=== PATIENT | female | born 1975 | race Caucasian/White ===

== ENCOUNTER 2018-11-13 17:14 | Inpatient (IN) | payer OTHER ==
[~2018-11-13] VITALS: Ht 170.2 cm; Wt 79.1 kg
[2018-11-13 18:25] LABS: ALANINE AMINOTRANSFERASE 64 U/L (12-78); ALBUMIN 3.3 g/dL (3.4-5.0); ALKALINE PHOSPHATASE 81 U/L (46-116); ANION GAP 11 mmol/L (8-16); ASPARTATE AMINOTRANSFERASE 58 U/L (15-37); BILIRUBIN,TOTAL 0.8 mg/dL (0.1-1.0); CALCIUM, TOTAL 9.1 mg/dL (8.8-10.5); CARBON DIOXIDE 25 mmol/L (22-29); CHLORIDE 99 mmol/L (98-107); CREATININE 1.04 mg/dL (0.60-1.30); GLOMERULAR FILTR. RATE CALC 57 mL/min (>60); GLUCOSE,RANDOM 100 mg/dL (70-110); HCG,QUANTITATIVE < 1 mIU/mL (0-6); SODIUM SERUM 135 mmol/L (136-145); TOTAL PROTEIN, SERUM 8.3 g/dL (6.4-8.2); UREA NITROGEN, BLOOD 16 mg/dL (7-18)
[2018-11-13 18:29] LABS: POTASSIUM 2.8 mmol/L (3.5-5.1)
[2018-11-13] MEDS: ONDANSETRON HCL 4 MG/2 ML VIAL IVP ONE ×2 (18:36→19:50)
[2018-11-13] MEDS: SODIUM CHLORIDE 0.9% 1,000 ML IV ONE ×2 (18:37→19:30)
[2018-11-13] MEDS ORDERED: POTASSIUM CHLORIDE 20 MEQ ER TABLET PO ONE (19:00)
[2018-11-13] MEDS ORDERED: VANCOMYCIN HCL 1 GM/D5% WATER 200 ML IV ONE (19:45)
[2018-11-13 19:56] LABS: BASOPHILS % (AUTO) 0.2 % (0.0-2.0); EOSINOPHILS % (AUTO) 0 % (1.0-6.0); HEMATOCRIT 35.9 % (36-46); HEMOGLOBIN 11.5 g/dL (12.0-16.0); LYMPHOCYTES # (AUTO) 1.4 K/uL (1.0-4.8); LYMPHOCYTES % (AUTO) 3.4 % (22.0-44.0); MEAN CORPUSCULAR HEMOGLOBIN 27.3 pg (26.0-34.0); MEAN CORPUSCULAR HGB CONC 32.1 G/dL (31.0-37.0); MEAN CORPUSCULAR VOLUME 85 fL (80-100); MONOCYTES # (AUTO) 1.5 K/uL (0.1-1.0); MONOCYTES % (AUTO) 3.7 % (2.0-9.0); NEUTROPHILS # (AUTO) 37.2 K/uL (1.8-7.7); PLATELET COUNT (AUTO) 244 K/uL (150-450); RED BLOOD CELL COUNT(AUTO) 4.22 MIL/uL (4.00-5.20); RED CELL DISTRIBUTION WIDTH 14.7 % (11.5-14.5)
[2018-11-13] MEDS: POTASSIUM CHL 10 MEQ/WATER 50 ML IV SCH ×2 (20:03→23:57)
[2018-11-13 20:08] LABS: NEUTROPHILS % (AUTO) 92.7 % (40.0-70.0)
[2018-11-13] MEDS ORDERED: MAG HYDROX/AL HYDROX/SIMETH ES 30 ML SUSPENSION UDCUP PO PRN (21:00)
[2018-11-13] MEDS ORDERED: PETROLATUM,WHITE 28 GM JELLY TP PRN (21:00)
[2018-11-13] MEDS ORDERED: DOCUSATE SODIUM 100 MG CAPSULE PO PRN (21:00)
[2018-11-13] MEDS ORDERED: MAGNESIUM SULFATE 2 GM, MVI, ADULT NO.1 WITH VIT K 10 ML, THIAMINE HCL 100 MG, FOLIC AC... IV ONE ×5 (21:00)
[2018-11-13] MEDS ORDERED: GuaiFENesin/D-METHORPHAN [SUGAR-FREE] 200-20MG/10 ML SYRUP UDCUP PO PRN (21:00)
[2018-11-13] MEDS ORDERED: MAGNESIUM HYDROXIDE SUSPENSION 30 ML UDCUP PO PRN (21:00)
[2018-11-13] MEDS ORDERED: ONDANSETRON HCL 4 MG TABLET PO PRN (21:00)
[2018-11-13] MEDS ORDERED: ALBUTEROL SULFATE HFA 90 MCG/PUFF 8 GM INHALER IH PRN (21:00)
[2018-11-13] MEDS ORDERED: LORazepam 2 MG/ML VIAL IVP PRN (21:00)
[2018-11-13] MEDS ORDERED: NICOTINE 14 MG/24 HOUR PATCH TD PRN (21:00)
[2018-11-13] MEDS: METOCLOPRAMIDE HCL 5 MG/ML 2 ML VIAL IVP PRN (21:29)
[2018-11-13] MEDS: TEMAZEPAM 15 MG CAPSULE PO SCH (21:52)
[2018-11-13] MEDS: LOPERAMIDE HCL 2 MG CAPSULE PO PRN (21:52)
[2018-11-13] MEDS ORDERED: ONDANSETRON HCL 4 MG/2 ML VIAL IM PRN (22:45)
[2018-11-13] MEDS: ONDANSETRON HCL 4 MG/2 ML VIAL IVP PRN (22:58)
[2018-11-13 23:01] VITALS: BP 118/53
[2018-11-13] MEDS ORDERED: LORazepam 2 MG/ML VIAL IVP ONE (23:45)
[2018-11-14] MEDS: POTASSIUM CHL 10 MEQ/WATER 50 ML IV SCH (01:50)
[2018-11-14] MEDS: LORazepam 2 MG/ML VIAL IVP PRN ×3 (02:26→14:02)
[2018-11-14 04:40] VITALS: BP 115/72
[2018-11-14 07:24] LABS: BASOPHILS % (AUTO) 0.1 % (0.0-2.0); EOSINOPHILS % (AUTO) 0 % (1.0-6.0); HEMATOCRIT 34.9 % (36-46); HEMOGLOBIN 11.4 g/dL (12.0-16.0); LYMPHOCYTES # (AUTO) 1.3 K/uL (1.0-4.8); LYMPHOCYTES % (AUTO) 4.7 % (22.0-44.0); MEAN CORPUSCULAR HEMOGLOBIN 28.2 pg (26.0-34.0); MEAN CORPUSCULAR HGB CONC 32.8 G/dL (31.0-37.0); MEAN CORPUSCULAR VOLUME 86 fL (80-100); MONOCYTES % (AUTO) 3.8 % (2.0-9.0); NEUTROPHILS # (AUTO) 24.9 K/uL (1.8-7.7); NEUTROPHILS % (AUTO) 91.4 % (40.0-70.0); PLATELET COUNT (AUTO) 205 K/uL (150-450); RED BLOOD CELL COUNT(AUTO) 4.05 MIL/uL (4.00-5.20); RED CELL DISTRIBUTION WIDTH 15.2 % (11.5-14.5)
[2018-11-14 07:34] LABS: ALBUMIN 3.3 g/dL (3.4-5.0); BILIRUBIN,TOTAL 0.6 mg/dL (0.1-1.0); CALCIUM, TOTAL 8.8 mg/dL (8.8-10.5); CREATININE 1.03 mg/dL (0.60-1.30); MAGNESIUM 1.8 mg/dL (1.80-2.40); POTASSIUM 3.3 mmol/L (3.5-5.1)
[2018-11-14 07:35] VITALS: BP 127/83
[2018-11-14] MEDS: DICYCLOMINE HCL 10 MG CAPSULE PO PRN ×2 (08:03→14:02)
[2018-11-14] MEDS: IBUPROFEN 400 MG TABLET PO PRN ×2 (08:03→22:25)
[2018-11-14] MEDS: CloNIDine HCL 0.1 MG TABLET PO PRN ×2 (08:03→14:02)
[2018-11-14] MEDS: ONDANSETRON HCL 4 MG/2 ML VIAL IVP PRN (08:04)
[2018-11-14] MEDS ORDERED: VANCOMYCIN HCL 1.5 GM in DEXTROSE 5%-WATER 250 ML IV ONE (09:00)
[2018-11-14] MEDS ORDERED: MAGNESIUM SULFATE 4 GM/WATER 100 ML IV PRN (09:00)
[2018-11-14] MEDS ORDERED: MAGNESIUM OXIDE 400 MG TABLET PO PRN (09:00)
[2018-11-14] MEDS ORDERED: POTASSIUM CHL 10 MEQ/WATER 50 ML IV PRN (09:00)
[2018-11-14] MEDS ORDERED: MAGNESIUM SULFATE 2 GM/WATER 50 ML IV PRN (09:00)
[2018-11-14] MEDS ORDERED: SODIUM CHLORIDE 0.9% 1,000 ML IV ONE (09:45)
[2018-11-14] MEDS: POTASSIUM CHLORIDE 20 MEQ ER TABLET PO PRN (14:02)
[2018-11-14 15:29] VITALS: BP 138/58
[2018-11-14 16:59] LABS: APPEARANCE,URINE TURBID (CLEAR); GLUCOSE, URINE (UA) NEGATIVE (NEGATIVE); KETONES,URINE 15 mg/dL (NEGATIVE); LEUKOCYTE ESTERASE ,URINE MODERATE (NEGATIVE); NITRATE,URINE NEGATIVE (NEGATIVE); OCCULT BLOOD,URINE LARGE (NEGATIVE); PH,URINE 5.5 (5.0-8.0); PROTEIN,URINE SEE CONFIRM (NEGATIVE)
[2018-11-14 17:00] LABS: AMPHET/METH SCREEN,URINE POSITIVE (NEGATIVE); BARBITURATE SCREEN, URINE NEGATIVE (NEGATIVE); BENZODIAZEPINES SCREEN,URINE NEGATIVE (NEGATIVE); CANNABINOID SCREEN,URINE NEGATIVE (NEGATIVE); COCAINE SCREEN,URINE NEGATIVE (NEGATIVE); METHADONE SCREEN, URINE NEGATIVE (NEGATIVE); OPIATE SCREEN,URINE POSITIVE (NEGATIVE)
[2018-11-14 17:01] LABS: PHENCYCLIDINE SCREEN,URINE NEGATIVE (NEGATIVE)
[2018-11-14 17:03] LABS: BILIRUBIN,URINE PRELIM. POSITIVE (NEGATIVE)
[2018-11-14] MEDS: VANCOMYCIN HCL 1.25 GM in DEXTROSE 5%-WATER 250 ML IV SCH (18:05)
[2018-11-14 18:31] LABS: BACTERIA,URINE Few /HPF (None Seen); SQUAMOUS EPITHELIAL CELL,UR Moderate /LPF (None Seen); SULFOSALICYLIC ACID,URINE 3+ (Negative)
[2018-11-14 18:32] LABS: AMORPHOUS SEDIMENT,UR Moderate /LPF (None Seen); RBC,URINE 26-50 /HPF (0-2)
[2018-11-14 19:36] VITALS: BP 138/74
[2018-11-14] MEDS: TEMAZEPAM 15 MG CAPSULE PO SCH (20:42)
[2018-11-14] MEDS: ACETAMINOPHEN 325 MG TABLET PO PRN (20:51)
[2018-11-14 23:49] VITALS: BP 140/82
[2018-11-15] MEDS: DICYCLOMINE HCL 10 MG CAPSULE PO PRN ×4 (01:43→21:37)
[2018-11-15] MEDS: LORazepam 2 MG/ML VIAL IVP PRN ×3 (01:43→18:17)
[2018-11-15 05:08] VITALS: BP 117/73
[2018-11-15] MEDS: IBUPROFEN 400 MG TABLET PO PRN ×3 (06:25→21:22)
[2018-11-15] MEDS: VANCOMYCIN HCL 1.25 GM in DEXTROSE 5%-WATER 250 ML IV SCH ×4 (06:54→22:00)
[2018-11-15 07:42] LABS: BASOPHILS % (AUTO) 0.2 % (0.0-2.0); EOSINOPHILS % (AUTO) 0.5 % (1.0-6.0); HEMOGLOBIN 11.8 g/dL (12.0-16.0); LYMPHOCYTES # (AUTO) 1.7 K/uL (1.0-4.8); LYMPHOCYTES % (AUTO) 7.5 % (22.0-44.0); MEAN CORPUSCULAR HEMOGLOBIN 28.2 pg (26.0-34.0); MEAN CORPUSCULAR HGB CONC 31.9 G/dL (31.0-37.0); MEAN CORPUSCULAR VOLUME 88 fL (80-100); MONOCYTES # (AUTO) 1.1 K/uL (0.1-1.0); MONOCYTES % (AUTO) 4.8 % (2.0-9.0); NEUTROPHILS # (AUTO) 19.4 K/uL (1.8-7.7); PLATELET COUNT (AUTO) 164 K/uL (150-450); RED BLOOD CELL COUNT(AUTO) 4.18 MIL/uL (4.00-5.20); RED CELL DISTRIBUTION WIDTH 15.3 % (11.5-14.5)
[2018-11-15 11:28] LABS: ANION GAP 8 mmol/L (8-16); CALCIUM, TOTAL 8.5 mg/dL (8.8-10.5); CARBON DIOXIDE 23 mmol/L (22-29); CHLORIDE 106 mmol/L (98-107); CREATININE 0.96 mg/dL (0.60-1.30); GLOMERULAR FILTR. RATE CALC > 60 mL/min (>60); GLUCOSE,RANDOM 105 mg/dL (70-110); POTASSIUM 3.4 mmol/L (3.5-5.1); SODIUM SERUM 137 mmol/L (136-145); UREA NITROGEN, BLOOD 14 mg/dL (7-18)
[2018-11-15 13:21] VITALS: BP 120/82
[2018-11-15] MEDS: METOCLOPRAMIDE HCL 5 MG/ML 2 ML VIAL IVP PRN (15:30)
[2018-11-15 17:03] VITALS: BP 155/82
[2018-11-15 20:05] VITALS: BP 137/82
[2018-11-15] MEDS: TEMAZEPAM 15 MG CAPSULE PO SCH (20:06)
[2018-11-15 23:40] VITALS: BP 146/86
[2018-11-16] MEDS: LORazepam 2 MG/ML VIAL IVP PRN ×3 (00:17→23:21)
[2018-11-16] MEDS: DICYCLOMINE HCL 10 MG CAPSULE PO PRN (05:02)
[2018-11-16] MEDS: IBUPROFEN 400 MG TABLET PO PRN ×2 (05:03→12:13)
[2018-11-16 05:12] VITALS: BP 165/90
[2018-11-16] MEDS: VANCOMYCIN HCL 1.25 GM in DEXTROSE 5%-WATER 250 ML IV SCH ×2 (06:01→19:53)
[2018-11-16 08:17] VITALS: BP 134/86
[2018-11-16 12:09] VITALS: BP 123/66
[2018-11-16 16:06] VITALS: BP 115/72
[2018-11-16] MEDS: TEMAZEPAM 15 MG CAPSULE PO SCH (19:53)
[2018-11-16 20:11] LABS: BASOPHILS % (AUTO) 0.6 % (0.0-2.0); EOSINOPHILS % (AUTO) 2.7 % (1.0-6.0); HEMATOCRIT 36.8 % (36-46); HEMOGLOBIN 12.2 g/dL (12.0-16.0); LYMPHOCYTES # (AUTO) 1.9 K/uL (1.0-4.8); LYMPHOCYTES % (AUTO) 15.5 % (22.0-44.0); MEAN CORPUSCULAR HEMOGLOBIN 28.1 pg (26.0-34.0); MEAN CORPUSCULAR VOLUME 85 fL (80-100); MONOCYTES # (AUTO) 1.1 K/uL (0.1-1.0); MONOCYTES % (AUTO) 9.2 % (2.0-9.0); NEUTROPHILS # (AUTO) 8.9 K/uL (1.8-7.7); PLATELET COUNT (AUTO) 277 K/uL (150-450); RED BLOOD CELL COUNT(AUTO) 4.32 MIL/uL (4.00-5.20); RED CELL DISTRIBUTION WIDTH 14.8 % (11.5-14.5)
[2018-11-16 20:18] VITALS: BP 122/76
[2018-11-16 20:35] LABS: CALCIUM, TOTAL 8.8 mg/dL (8.8-10.5); CREATININE 1.01 mg/dL (0.60-1.30); POTASSIUM 3.4 mmol/L (3.5-5.1); VANCOMYCIN,RANDOM 17.7 mcg/mL (25.0-50.0)
[2018-11-16] MEDS: LOPERAMIDE HCL 2 MG CAPSULE PO PRN (21:18)
[2018-11-17 04:00] VITALS: BP 137/69
[2018-11-17] MEDS: LORazepam 2 MG/ML VIAL IVP PRN (05:30)
[2018-11-17] MEDS: POTASSIUM CHLORIDE 20 MEQ ER TABLET PO PRN (05:30)
[2018-11-17] MEDS: IBUPROFEN 400 MG TABLET PO PRN ×2 (07:48→15:35)
[2018-11-17 08:00] VITALS: BP 114/71
[2018-11-17] MEDS: VANCOMYCIN HCL 1.25 GM in DEXTROSE 5%-WATER 250 ML IV SCH (10:36)
[2018-11-17 10:40] LABS: BASOPHILS % (AUTO) 0.7 % (0.0-2.0); EOSINOPHILS % (AUTO) 2.8 % (1.0-6.0); HEMOGLOBIN 13.6 g/dL (12.0-16.0); LYMPHOCYTES # (AUTO) 2.2 K/uL (1.0-4.8); LYMPHOCYTES % (AUTO) 16.3 % (22.0-44.0); MEAN CORPUSCULAR HGB CONC 32.4 G/dL (31.0-37.0); MEAN CORPUSCULAR VOLUME 87 fL (80-100); MONOCYTES # (AUTO) 1.2 K/uL (0.1-1.0); MONOCYTES % (AUTO) 9.3 % (2.0-9.0); NEUTROPHILS # (AUTO) 9.4 K/uL (1.8-7.7); NEUTROPHILS % (AUTO) 70.9 % (40.0-70.0); PLATELET COUNT (AUTO) 301 K/uL (150-450); RED BLOOD CELL COUNT(AUTO) 4.85 MIL/uL (4.00-5.20); RED CELL DISTRIBUTION WIDTH 14.8 % (11.5-14.5)
[2018-11-17 10:56] LABS: CREATININE 1.03 mg/dL (0.60-1.30); POTASSIUM 3.6 mmol/L (3.5-5.1); VANCOMYCIN,RANDOM 16.2 mcg/mL (25.0-50.0)
[2018-11-17 11:32] VITALS: BP 103/76
[2018-11-17] MEDS: SULFAMETHOX/TRIMETH DS 800-160 MG/TABLET PO SCH ×2 (13:53→21:09)
[2018-11-17] MEDS: CEPHALEXIN MONOHYDRATE 500 MG CAPSULE PO SCH ×2 (15:35→21:10)
[2018-11-17 16:21] VITALS: BP 124/83
[2018-11-17 20:08] VITALS: BP 120/84
[2018-11-17] MEDS: ACETAMINOPHEN 325 MG TABLET PO PRN (20:13)
[2018-11-17] MEDS ORDERED: VANCOMYCIN HCL 1 GM/D5% WATER 200 ML IV SCH (21:00)
[2018-11-17] MEDS: TEMAZEPAM 15 MG CAPSULE PO SCH (21:10)
[2018-11-17 23:40] VITALS: BP 106/75
[2018-11-18] MEDS: ONDANSETRON HCL 4 MG TABLET PO PRN ×2 (00:57→09:28)
[2018-11-18] MEDS: IBUPROFEN 400 MG TABLET PO PRN ×2 (00:58→22:16)
[2018-11-18 04:35] VITALS: BP 148/80
[2018-11-18 08:22] VITALS: BP 125/83
[2018-11-18] MEDS: CEPHALEXIN MONOHYDRATE 500 MG CAPSULE PO SCH ×3 (09:23→20:24)
[2018-11-18] MEDS: MULTIVITAMINS WITH MINERALS, THERAPEUTIC TABLET PO SCH (09:24)
[2018-11-18] MEDS: SULFAMETHOX/TRIMETH DS 800-160 MG/TABLET PO SCH ×2 (09:26→20:24)
[2018-11-18 11:24] VITALS: BP 123/80
[2018-11-18] MEDS: BusPIRone HCL 5 MG TABLET PO SCH ×3 (11:39→20:24)
[2018-11-18 15:28] VITALS: BP 112/78
[2018-11-18] MEDS: ONDANSETRON HCL 4 MG/2 ML VIAL IVP PRN ×2 (15:44→23:44)
[2018-11-18 20:24] VITALS: BP 132/84
[2018-11-18] MEDS: TEMAZEPAM 15 MG CAPSULE PO SCH (20:24)
[2018-11-18 23:48] VITALS: BP 137/76
[2018-11-19 04:45] VITALS: BP 123/76
[2018-11-19 08:00] VITALS: BP 113/69
[2018-11-19] MEDS: MULTIVITAMINS WITH MINERALS, THERAPEUTIC TABLET PO SCH (09:35)
[2018-11-19] MEDS: CEPHALEXIN MONOHYDRATE 500 MG CAPSULE PO SCH ×3 (09:35→20:34)
[2018-11-19] MEDS: BusPIRone HCL 5 MG TABLET PO SCH ×3 (09:35→20:34)
[2018-11-19] MEDS: SULFAMETHOX/TRIMETH DS 800-160 MG/TABLET PO SCH ×2 (09:35→20:34)
[2018-11-19 11:29] LABS: BASOPHILS % (AUTO) 0.5 % (0.0-2.0); EOSINOPHILS % (AUTO) 1.4 % (1.0-6.0); HEMATOCRIT 47.7 % (36-46); HEMOGLOBIN 15.4 g/dL (12.0-16.0); LYMPHOCYTES # (AUTO) 2.2 K/uL (1.0-4.8); LYMPHOCYTES % (AUTO) 15.9 % (22.0-44.0); MEAN CORPUSCULAR HEMOGLOBIN 27.9 pg (26.0-34.0); MEAN CORPUSCULAR HGB CONC 32.3 G/dL (31.0-37.0); MEAN CORPUSCULAR VOLUME 86 fL (80-100); MONOCYTES # (AUTO) 1.1 K/uL (0.1-1.0); MONOCYTES % (AUTO) 7.8 % (2.0-9.0); NEUTROPHILS # (AUTO) 10.2 K/uL (1.8-7.7); NEUTROPHILS % (AUTO) 74.4 % (40.0-70.0); PLATELET COUNT (AUTO) 317 K/uL (150-450); RED BLOOD CELL COUNT(AUTO) 5.53 MIL/uL (4.00-5.20); RED CELL DISTRIBUTION WIDTH 15.1 % (11.5-14.5)
[2018-11-19 11:56] LABS: CALCIUM, TOTAL 8.7 mg/dL (8.8-10.5); CREATININE 1.33 mg/dL (0.60-1.30); POTASSIUM 3.7 mmol/L (3.5-5.1)
[2018-11-19] MEDS ORDERED: DiphenhydrAMINE HCL 50 MG CAPSULE PO PRN (12:00)
[2018-11-19 12:09] VITALS: BP 108/73
[2018-11-19 16:11] VITALS: BP 114/78
[2018-11-19] MEDS: ONDANSETRON HCL 4 MG/2 ML VIAL IVP PRN (18:56)
[2018-11-19 19:47] VITALS: BP 112/74
[2018-11-19] MEDS: IBUPROFEN 400 MG TABLET PO PRN (23:08)
[2018-11-20 00:13] VITALS: BP 122/92
[2018-11-20] MEDS: ACETAMINOPHEN 325 MG TABLET PO PRN (01:08)
[2018-11-20 04:00] VITALS: BP 134/84
[2018-11-20 07:40] VITALS: BP 125/76
[2018-11-20] MEDS: MULTIVITAMINS WITH MINERALS, THERAPEUTIC TABLET PO SCH (08:40)
[2018-11-20] MEDS: BusPIRone HCL 5 MG TABLET PO SCH (08:40)
[2018-11-20] MEDS: SULFAMETHOX/TRIMETH DS 800-160 MG/TABLET PO SCH (08:40)
[2018-11-20] MEDS: CEPHALEXIN MONOHYDRATE 500 MG CAPSULE PO SCH (08:40)
[2018-11-20] MEDS ORDERED: SODIUM CHLORIDE 0.9% 1,000 ML IV ONE (08:57)
[2018-11-20 10:35] LABS: BASOPHILS % (AUTO) 0.6 % (0.0-2.0); EOSINOPHILS % (AUTO) 1.7 % (1.0-6.0); HEMATOCRIT 47.5 % (36-46); HEMOGLOBIN 15.4 g/dL (12.0-16.0); LYMPHOCYTES # (AUTO) 2.7 K/uL (1.0-4.8); MEAN CORPUSCULAR HEMOGLOBIN 27.8 pg (26.0-34.0); MEAN CORPUSCULAR HGB CONC 32.4 G/dL (31.0-37.0); MEAN CORPUSCULAR VOLUME 86 fL (80-100); MONOCYTES # (AUTO) 1.2 K/uL (0.1-1.0); MONOCYTES % (AUTO) 7.8 % (2.0-9.0); NEUTROPHILS # (AUTO) 10.8 K/uL (1.8-7.7); NEUTROPHILS % (AUTO) 71.9 % (40.0-70.0); PLATELET COUNT (AUTO) 358 K/uL (150-450); RED BLOOD CELL COUNT(AUTO) 5.54 MIL/uL (4.00-5.20); RED CELL DISTRIBUTION WIDTH 15.5 % (11.5-14.5)
[2018-11-20 10:47] LABS: CALCIUM, TOTAL 9.1 mg/dL (8.8-10.5); CREATININE 1.25 mg/dL (0.60-1.30); POTASSIUM 4.4 mmol/L (3.5-5.1); VANCOMYCIN,RANDOM 0.9 mcg/mL (25.0-50.0)
[2018-11-20 11:52] VITALS: BP 111/71
[2018-11-20] MEDS ORDERED: BACTDSB PO (13:53)
[2018-11-20] MEDS ORDERED: CEPH500 PO (13:53)
[2018-11-20] MEDS ORDERED: ZOLP5 PO (13:55)
[2018-11-20] MEDS ORDERED: BUSP5TAB20 PO (13:56)
[2018-11-20] MEDS ORDERED: ACET-784 PO (13:57)
[2018-11-20] MEDS ORDERED: CLON0.1T PO (13:58)
[2018-11-20] MEDS ORDERED: DICY10 PO (13:59)
[2018-11-20 15:54] VITALS: BP 109/69
== END 2018-11-20 16:00 | DRG 872 ==
LOC: EMS 17:15 → 6S 20:18
PROVIDERS: ADMIT Internal Medicine; ATTEND Internal Medicine
DX: A41.9 Sepsis, unspecified organism (principal); F11.23 Opioid dependence with withdrawal; L03.114 Cellulitis of left upper limb; F11.20 Opioid dependence, uncomplicated; E87.6 Hypokalemia; D64.9 Anemia, unspecified; F15.10 Other stimulant abuse, uncomplicated; Z02.89 Encounter for other administrative examinations; F41.1 Generalized anxiety disorder; Z79.899 Other long term (current) drug therapy
CPT/HCPCS: 80074; 80307; 83735; 84132; 84145; 87040; 87081; 87086; 93005; 96374; 96375; 97116; 97161; 97530; J2060; J2405; J2765; J3370; J3411; J3475; J3480; J3490; J7030; J7060; Q0162